=== PATIENT | female | born 1985 | race Caucasian/White ===

== ENCOUNTER → 2024-07-31 12:01 | Outpatient (REF) | payer BC, SELFPAY | LOC: WDC 12:01 | PROVIDERS: ATTENDING PHYSICIAN Nurse Practitioner | DX: Z12.31 Encounter for screening mammogram for malignant neoplasm of breast (principal) | CPT/HCPCS: 77063; 77067 ==

== ENCOUNTER → 2024-08-09 09:54 | Outpatient (REF) | payer BC, SELFPAY | LOC: WDC 09:54 | PROVIDERS: ATTENDING PHYSICIAN Nurse Practitioner | DX: R92.8 Other abnormal and inconclusive findings on diagnostic imaging of breast (principal) | CPT/HCPCS: 76642 ==

== ENCOUNTER → 2025-03-05 14:02 | Outpatient (REF) | payer BC, SELFPAY | LOC: WDC 14:02 | PROVIDERS: ATTENDING PHYSICIAN Nurse Practitioner | DX: R92.8 Other abnormal and inconclusive findings on diagnostic imaging of breast (principal) | CPT/HCPCS: 76642 ==

== ENCOUNTER → 2025-08-08 11:17 | Outpatient (REF) | payer BC, SELFPAY | LOC: WDC 11:17 | PROVIDERS: ATTENDING PHYSICIAN Nurse Practitioner | DX: Z12.31 Encounter for screening mammogram for malignant neoplasm of breast (principal) | CPT/HCPCS: 77063; 77067 ==

== ENCOUNTER → 2025-09-03 14:34 | Outpatient (REF) | payer BC, SELFPAY | LOC: WDC 14:34 | PROVIDERS: ATTENDING PHYSICIAN Nurse Practitioner | DX: R92.8 Other abnormal and inconclusive findings on diagnostic imaging of breast (principal) | CPT/HCPCS: 76642 ==